=== PATIENT | male | born 1970 | race Caucasian/White ===

== ENCOUNTER 2022-08-15 16:31 | Emergency (ER) | payer MEDICAID ==
[~2022-08-15] VITALS: Ht 152.4 cm; Wt 98.0 kg
[2022-08-15 16:59] VITALS: BP 131/101
== END 2022-08-15 21:22 | disposition left against medical advice (07) ==
LOC: ER 16:31
DX: Z53.21 Procedure and treatment not carried out due to patient leaving prior to being seen by health care provider (principal)